=== PATIENT | male | born 1955 | race Caucasian/White ===

== ENCOUNTER 2018-08-23 13:04 | Inpatient (IN) | payer OTHER ==
[2018-08-23] MEDS: ONDANSETRON 4 MG INJ IV (16:53)
[2018-08-23] MEDS: HYDROmorphONE 1 MG/ML SYG IV (16:54)
[2018-08-23 16:56] LABS: ADD MAN DIFF? NO
[2018-08-23] MEDS: SOD CHLORIDE 0.9% 1,000 ML IV ×2 (16:58→19:23)
[2018-08-23 17:02] LABS: WHITE BLOOD COUNT 22.6 10^3/ul (4.8-10.8)
[2018-08-23 17:02] LABS: ABNORMAL IP MESSAGE 1; BASOPHIL # 0.1 10^3/ul (0.0-0.1); BASOPHILS % 0.6 % (0.0-2.0); EOSINOPHILS # 0.2 10^3/ul (0.0-0.5); HEMATOCRIT 35.7 % (42.0-52.0); HEMOGLOBIN 11.8 g/dl (14.0-18.0); LYMPHOCYTES # 2.1 10^3/ul (0.8-2.9); LYMPHOCYTES % 9.1 % (15.0-51.0); MEAN CORPUSCULAR HEMOGLOBIN 27.6 pg (29.0-33.0); MEAN CORPUSCULAR HGB CONC 33.1 g/dl (32.0-37.0); MEAN CORPUSCULAR VOLUME 83.6 fl (82.0-101.0); MEAN PLATELET VOLUME 10.7 fl (7.4-10.4); MONOCYTE # 1.9 10^3/ul (0.3-0.9); MONOCYTES % 8.4 % (0.0-11.0); NEUTROPHIL # 18.1 10^3/ul (1.6-7.5); NEUTROPHILS % 80.1 % (39.0-77.0); PLATELET COUNT 368 10^3/UL (140-415); POSITIVE DIFF @See below; RED BLOOD COUNT 4.27 10^6/ul (4.70-6.10); RED CELL DISTRIBUTION WIDTH 12.7 % (11.5-14.5)
[2018-08-23 17:19] LABS: ALANINE AMINOTRANSFERASE 28 IU/L (13-69); ALBUMIN 3.4 g/dl (3.3-4.9); ALKALINE PHOSPHATASE 126 IU/L (42-121); AMYLASE 60 U/L (11-123); ANION GAP 14 (5-13); ASPARTATE AMINO TRANSFERASE 22 IU/L (15-46); BILIRUBIN,INDIRECT 0.8 mg/dl (0-1.1); BILIRUBIN,TOTAL 0.8 mg/dl (0.2-1.3); BLOOD UREA NITROGEN 14 mg/dl (7-20); CALCIUM 8.5 mg/dl (8.4-10.2); CARBON DIOXIDE 27 mmol/L (21-31); CHLORIDE 91 mmol/L (97-110); CREATININE 0.79 mg/dl (0.61-1.24); Estimated GFR > 60 mL/min (>60); GLUCOSE 99 mg/dl (70-220); LIPASE 44 U/L (23-300); POTASSIUM 4.3 mmol/L (3.5-5.1); SODIUM 132 mmol/L (135-144); TOTAL PROTEIN 6.8 g/dl (6.1-8.1)
[2018-08-23 17:23] LABS: INR 1.17; PT RATIO 1.2
[2018-08-23 17:24] LABS: PARTIAL THROMBOPLASTIN TIME 33.6 Sec (23.0-35.0)
[2018-08-23 17:31] LABS: TROPONIN-I < 0.012 ng/ml (0.000-0.120)
[2018-08-23] MEDS: IOHEXOL 300MG/ML 150 ML BTL (17:49)
[2018-08-23] MEDS: SOD CHLORIDE 0.9% 100 ML (17:49)
[2018-08-23] MEDS ORDERED: VANCOMYCIN 1 GM (PMX) 250 ML IVPB (18:17)
[2018-08-23 18:24] LABS: ADD UMIC NO; UR ASCORBIC ACID NEGATIVE (NEGATIVE); UR BILIRUBIN (Dip) NEGATIVE (NEGATIVE); UR BLOOD (Dip) NEGATIVE (NEGATIVE); UR CLARITY CLEAR (CLEAR); UR COLOR YELLOW (YELLOW); UR GLUCOSE (Dip) NEGATIVE (NEGATIVE); UR KETONES (Dip) 1+ mg/dL (NEGATIVE); UR LEUKOCYTE ESTERASE (Dip) NEGATIVE Leu/ul (NEGATIVE); UR NITRITE (Dip) NEGATIVE (NEGATIVE); UR SPECIFIC GRAVITY (Dip) 1.029 (1.003-1.030); UR TOTAL PROTEIN (Dip) NEGATIVE (NEGATIVE); UR UROBILINOGEN (Dip) NEGATIVE (NEGATIVE)
[2018-08-23] MEDS ORDERED: ACETAMINOPHEN 325 MG TAB PO ×2 (18:30)
[2018-08-23] MEDS ORDERED: morphine 2 MG INJ IV (18:30)
[2018-08-23] MEDS ORDERED: NACL 0.9% 3 ML SYG IV (18:30)
[2018-08-23] MEDS ORDERED: ONDANSETRON 4 MG INJ IV ×2 (18:30)
[2018-08-23] MEDS: ALBUTEROL 0.5% (NEB) 2.5 MG/0.5 ML AMP NEB (18:44)
[2018-08-23] MEDS: IPRATROPIUM (NEB) 0.5 MG/2.5 ML AMP NEB (18:44)
[2018-08-23] MEDS: PIPER-TAZO 3.375 GM IV (PMX) 100 ML IVPB (18:56)
[2018-08-23] MEDS: HYDROCODONE/APAP (5/325) TAB PO (22:44)
[2018-08-24] MEDS ORDERED: HYDROmorphONE 1 MG/ML SYG IV (04:00)
[2018-08-24] MEDS: HYDROCODONE/APAP (5/325) TAB PO ×2 (05:24→23:48)
[2018-08-24] MEDS ORDERED: ALBUTEROL/IPRATROPIUM (NEB) 3 ML AMP HHN (05:30)
[2018-08-24 06:47] LABS: WHITE BLOOD COUNT 17.4 10^3/ul (4.8-10.8)
[2018-08-24 06:47] LABS: ABNORMAL IP MESSAGE 1; ADD MAN DIFF? NO; BASOPHIL # 0.1 10^3/ul (0.0-0.1); BASOPHILS % 0.5 % (0.0-2.0); EOSINOPHILS # 0.4 10^3/ul (0.0-0.5); EOSINOPHILS % 2.1 % (0.0-7.0); HEMATOCRIT 32.9 % (42.0-52.0); HEMOGLOBIN 10.8 g/dl (14.0-18.0); LYMPHOCYTES # 1.8 10^3/ul (0.8-2.9); LYMPHOCYTES % 10.1 % (15.0-51.0); MEAN CORPUSCULAR HGB CONC 32.8 g/dl (32.0-37.0); MEAN CORPUSCULAR VOLUME 85.2 fl (82.0-101.0); MONOCYTE # 1.9 10^3/ul (0.3-0.9); MONOCYTES % 11.1 % (0.0-11.0); NEUTROPHIL # 13.2 10^3/ul (1.6-7.5); NEUTROPHILS % 75.6 % (39.0-77.0); PLATELET COUNT 304 10^3/UL (140-415); POSITIVE DIFF @See below; RED BLOOD COUNT 3.86 10^6/ul (4.70-6.10)
[2018-08-24] MEDS: PIPER-TAZO 3.375 GM IV (PMX) 100 ML IVPB ×3 (06:53→17:13)
[2018-08-24 07:16] LABS: ALANINE AMINOTRANSFERASE 24 IU/L (13-69); ALBUMIN/GLOBULIN RATIO 1.07; ALKALINE PHOSPHATASE 102 IU/L (42-121); ANION GAP 3 (5-13); ASPARTATE AMINO TRANSFERASE 19 IU/L (15-46); BILIRUBIN,INDIRECT 0.6 mg/dl (0-1.1); BILIRUBIN,TOTAL 0.6 mg/dl (0.2-1.3); BLOOD UREA NITROGEN 11 mg/dl (7-20); CALCIUM 8.3 mg/dl (8.4-10.2); CARBON DIOXIDE 30 mmol/L (21-31); CHLORIDE 101 mmol/L (97-110); CHOL/HDL RATIO 7.1 RATIO; CHOLESTEROL 128 mg/dl (100-200); Estimated GFR > 60 mL/min (>60); GLUCOSE 102 mg/dl (70-220); HDL CHOLESTEROL 18 mg/dl (30-78); LDL CHOLESTEROL,CALCULATED 91 mg/dl; MAGNESIUM 2.1 mg/dl (1.7-2.5); SODIUM 134 mmol/L (135-144); TOTAL PROTEIN 5.8 g/dl (6.1-8.1); TRIGLYCERIDES 93 mg/dl (0-149)
[2018-08-24 08:06] LABS: HEMOGLOBIN A1C 5.6 % (0-5.9)
[2018-08-24] MEDS: ALBUTEROL/IPRATROPIUM (NEB) 3 ML AMP HHN ×4 (08:32→20:23)
[2018-08-24] MEDS: ENOXAPARIN 40 MG/0.4 ML SYG SC (09:06)
[2018-08-24] MEDS: DOCUSATE SODIUM 100 MG CAP PO ×2 (13:23→21:16)
[2018-08-24] MEDS: MAGNESIUM HYDROXIDE 30ML CUP PO (17:13)
[2018-08-24] MEDS ORDERED: morphine 2 MG INJ IV (19:00)
[2018-08-24 21:02] LABS: AADO2 Arterial 51.7 mmHg (7.0-24.0); Allen Test ACCEPTAB; Arterial Base Excess 1.3 mmol/L (-3.0-3); Arterial COHb 0 % (0.0-3.0); Arterial Fraction of Oxyhgb 90.8 % (93.0-99.0); Arterial HCO3 24.6 mmol/L (22.0-26.0); Arterial MetHb 0.2 % (0.0-1.5); Arterial pCO2 34.7 mmhg (35-45); MODE ROOM AIR; Site Right Radial
[2018-08-25] MEDS: ALBUTEROL/IPRATROPIUM (NEB) 3 ML AMP HHN ×6 (02:17→19:31)
[2018-08-25] MEDS: DOCUSATE SODIUM 100 MG CAP PO ×2 (09:55→19:53)
[2018-08-25] MEDS: ENOXAPARIN 40 MG/0.4 ML SYG SC (10:07)
[2018-08-25] MEDS: HYDROCODONE/APAP (5/325) TAB PO ×2 (12:54→19:56)
[2018-08-26] MEDS: ALBUTEROL/IPRATROPIUM (NEB) 3 ML AMP HHN ×2 (00:36→04:13)
[2018-08-26] MEDS: HYDROCODONE/APAP (5/325) TAB PO (04:26)
== END 2018-08-26 06:00 | disposition home or self-care (01) | DRG 181 ==
LOC: PP2 08-25 15:57 → E/R 13:04 → TEL 18:29
DX: C78.01 Secondary malignant neoplasm of right lung (principal); C78.7 Secondary malignant neoplasm of liver and intrahepatic bile duct; C25.9 Malignant neoplasm of pancreas, unspecified; Z87.891 Personal history of nicotine dependence; Z53.29 Procedure and treatment not carried out because of patient's decision for other reasons
CPT/HCPCS: 36415; 36600; 71045; 71260; 74177; 80053; 80061; 81003; 82150; 82803; 83036; 83690; 83735; 84443; 84484; 85025; 85610; 85730; 87040-91; 87086; 93005; 94640; 94644; 94664; 96374; 96375; 99291-25